=== PATIENT | female | born 1995 | race Caucasian/White ===

== ENCOUNTER 2016-08-23 19:28 | Emergency (ER) | payer MEDICAID ==
[~2016-08-23] VITALS: Ht 157.5 cm; Wt 86.2 kg
[~2016-08-23 19:28] MED LIST: PREN-385 PO
[2016-08-23 20:13] VITALS: BP 125/78
[2016-08-23 21:29] LABS: BASOPHILS # (AUTO) 0.2 K/uL (0.00-0.22); BASOPHILS % (AUTO) 1.8 % (0.0-2.0); EOSINOPHILS # (AUTO) 0.2 K/uL (0-0.4); EOSINOPHILS % (AUTO) 2.4 % (0.0-4.0); HEMATOCRIT 34.8 % (36-48); HEMOGLOBIN 11.7 g/dL (12.0-16.0); LYMPHOCYTES # (AUTO) 2.4 K/uL (2.5-16.5); MEAN CORPUSCULAR HEMOGLOBIN 26 pg (27-31); MEAN CORPUSCULAR HGB CONC 34 g/dL (33-37); MEAN CORPUSCULAR VOLUME 77 fL (80-94); MONOCYTES # (AUTO) 0.4 K/uL (0.8-1.0); MONOCYTES % (AUTO) 3.9 % (1.7-9.3); NEUTROPHILS # (AUTO) 6.1 K/uL (1.8-7.7); NEUTROPHILS % (AUTO) 65.9 % (42.2-75.2); PLATELET COUNT (AUTO) 217 K/uL (140-450); RED CELL DISTRIBUTION WIDTH 12.9 % (11.6-13.7); WHITE BLOOD COUNT (AUTO) 9.3 K/uL (4.5-11.0)
[2016-08-23 21:35] LABS: APPEARANCE,URINE SL CLOUDY (CLEAR); BILIRUBIN,URINE NEGATIVE (NEGATIVE); BLOOD, URINE TRACE-I (NEGATIVE); COLOR,URINE YELLOW (YELLOW); LEUKOCYTE ESTERASE ,URINE 2+ (NEGATIVE); NITRITE, URINE NEGATIVE (NEGATIVE); PROTEIN,URINE NEGATIVE (NEGATIVE); UGLUCOSE NEGATIVE (NEGATIVE); UROBILINOGEN,URINE 0.2 EU/dL (0.2 - 1)
--- NOTE | 2016-08-23 21:40 | NUR ---
20 Y/O F W/C/O VAGINAL PAIN THAT COMES AND GOES AND YELLOWISH DISCHARGE X 1WK. PT STATES SHE BUT DOES NOT KNOW HOW FAR ALONG SHE IS. NO MED HX PT DENIES N/V/D; SKIN IS PINK/WARM/DRY; AAOX4 WITH EVEN AND STEADY GAIT; LUNGS CLEAR BL; HR EVEN AND REGULAR; PT DENIES ANY FEVER, CP, SOB, OR COUGH AT THIS TIME; PATIENT STATES PAIN OF 0/10 AT THIS TIME; VSS; PATIENT POSITIONED FOR COMFORT; HOB ELEVATED; BEDRAILS UP X2; BED DOWN. ER MD MADE AWARE OF PT STATUS.
--- NOTE | 2016-08-23 21:40 | NUR ---
TO ER BED 6
[2016-08-23 21:46] LABS: ANION GAP 13.8 (8-16); CALCIUM 8.7 mg/dL (8.5-10.1); CARBON DIOXIDE 24.2 mmol/L (21-32); CREATININE 0.4 mg/dL (0.6-1.3)
[2016-08-23 21:54] LABS: BACTERIA,URINE 2+ /HPF (None Seen); RBC,URINE 0-5 /HPF (0-5); WBC,URINE 20-40 /HPF (0-5)
--- NOTE | 2016-08-23 22:17 | NUR ---
CALLED [facility] FOR MACROBID 100MG TAB.
--- NOTE | 2016-08-23 22:29 | NUR ---
CALLED [facility] AGAIN FOR ETA OF MACROBIB
[2016-08-23 22:55] VITALS: BP 110/60
--- NOTE | 2016-08-23 22:56 | NUR ---
Patient discharged with v/s stable. Written and verbal after care instructions given and explained. Patient alert, oriented and verbalized understanding of instructions. Ambulatory with steady gait. All questions addressed prior to discharge. ID band removed. Patient advised to follow up with PMD. Rx of MACROBIB 100MG BID given. Patient educated on indication of medication including possible reaction and side effects. Opportunity to ask questions provided and answered.
[2016-08-24] MEDS ORDERED: NITROFURANTOIN 100 MG CAP PO SCH (08:00)
== END 2016-08-23 22:55 | disposition home or self-care (01) ==
LOC: MED 19:28
DX: O23.42 Unspecified infection of urinary tract in pregnancy, second trimester (principal); R10.2 Pelvic and perineal pain; R03.0 Elevated blood-pressure reading, without diagnosis of hypertension; Z88.9 Allergy status to unspecified drugs, medicaments and biological substances; Z3A.14 14 weeks gestation of pregnancy
CPT/HCPCS: 36415; 76805; 80048; 81001; 81025; 84702; 85025; 86900; 86901; 87086; 99285

== ENCOUNTER 2016-08-31 13:31 | Emergency (ER) | payer MEDICAID ==
[~2016-08-31] VITALS: Ht 160 cm; Wt 86.4 kg
[2016-08-31 13:49] VITALS: BP 111/62
[2016-08-31 15:52] LABS: APPEARANCE,URINE HAZY (CLEAR); BILIRUBIN,URINE NEGATIVE (NEGATIVE); BLOOD, URINE NEGATIVE (NEGATIVE); COLOR,URINE YELLOW (YELLOW); LEUKOCYTE ESTERASE ,URINE 3+ (NEGATIVE); NITRITE, URINE NEGATIVE (NEGATIVE); PROTEIN,URINE TRACE (NEGATIVE); UGLUCOSE NEGATIVE (NEGATIVE)
[2016-08-31 15:58] LABS: BACTERIA,URINE 2+ /HPF (None Seen); MUCUS,URINE 2+ /LPF (None Seen); URINE AMORPHOUS PHOSPHATES 1+ /HPF (None Seen)
--- NOTE | 2016-08-31 16:00 | NUR ---
PT TO BED 8
--- NOTE | 2016-08-31 16:14 | NUR ---
Patient being evaluated by Tawana RISK CONTROL REPRESENTATIVE at bedside.
--- NOTE | 2016-08-31 16:14 | NUR ---
20/F c/o frequency, dribbling, urgency, dysuria x1 week. Pt was seen here and dx with UTI but was unable to fill her prescription d/t having no money. Pt states he is still having UTI symptoms and also c/o vaginal itching along with yellow discharge. Pt also reports being 14 weeks , G- 2 P-1. VSS.
--- NOTE | 2016-08-31 16:51 | NUR ---
Pelvic exam set up. Tawana at bedside for heart tones.
[2016-08-31 17:20] LABS: BASOPHILS # (AUTO) 0.3 K/uL (0.00-0.22); EOSINOPHILS # (AUTO) 0.2 K/uL (0-0.4); EOSINOPHILS % (AUTO) 2.3 % (0.0-4.0); HEMOGLOBIN 12.3 g/dL (12.0-16.0); LYMPHOCYTES % (AUTO) 19.8 % (20.5-51.1); MEAN CORPUSCULAR HEMOGLOBIN 26 pg (27-31); MEAN CORPUSCULAR HGB CONC 33 g/dL (33-37); MEAN CORPUSCULAR VOLUME 78 fL (80-94); MONOCYTES # (AUTO) 0.4 K/uL (0.8-1.0); MONOCYTES % (AUTO) 3.6 % (1.7-9.3); NEUTROPHILS # (AUTO) 7.2 K/uL (1.8-7.7); NEUTROPHILS % (AUTO) 71.3 % (42.2-75.2); PLATELET COUNT (AUTO) 245 K/uL (140-450); RED BLOOD CELL COUNT(AUTO) 4.74 MIL/uL (4.20-5.40); WHITE BLOOD COUNT (AUTO) 10.1 K/uL (4.5-11.0)
--- NOTE | 2016-08-31 17:35 | NUR ---
Pt recalls she was taking Azo over the counter. Tawana JONES made aware.
[2016-08-31 17:39] LABS: CARBON DIOXIDE 21.8 mmol/L (21-32); CREATININE 0.5 mg/dL (0.6-1.3); POTASSIUM 3.8 mmol/L (3.5-5.1)
--- NOTE | 2016-08-31 18:05 | NUR ---
Patient appears to be resting comfortably in bed. VSS.
[2016-08-31 18:52] VITALS: BP 118/71
--- NOTE | 2016-08-31 18:53 | NUR ---
Patient discharged with v/s stable. Written and verbal after care instructions given and explained. Patient verbalized understanding. Ambulatory with steady gait. All questions addressed prior to discharge. Advised to follow up with PMD.
[2016-09-04 06:13] LABS: CHLAMYDIA TRACHOMATIS AMP DNA Negative (Negative)
== END 2016-08-31 18:53 | disposition home or self-care (01) ==
LOC: MED 13:32
DX: O26.891 Other specified pregnancy related conditions, first trimester (principal); R39.15 Urgency of urination; R35.0 Frequency of micturition; N89.8 Other specified noninflammatory disorders of vagina; Z3A.14 14 weeks gestation of pregnancy
CPT/HCPCS: 36415; 80048; 81001; 81025; 84702; 85025; 86886; 86900; 86901; 87086; 87210; 87491; 99284; 99285

== ENCOUNTER 2016-10-06 17:30 | Observation (INO) | payer MEDICAID ==
[~2016-10-06] VITALS: Ht 157.5 cm; Wt 86.2 kg
[2016-10-06] MEDS ORDERED: ACETAMINOPHEN 325 MG TAB PO PRN (18:20)
[2016-10-06 18:30] LABS: APPEARANCE,URINE CLEAR (CLEAR); BILIRUBIN,URINE NEGATIVE (NEGATIVE); BLOOD, URINE NEGATIVE (NEGATIVE); COLOR,URINE YELLOW (YELLOW); LEUKOCYTE ESTERASE ,URINE NEGATIVE (NEGATIVE); NITRITE, URINE NEGATIVE (NEGATIVE); UGLUCOSE NEGATIVE (NEGATIVE)
[2016-10-06] MEDS ORDERED: ACETAMINOPHEN 325 MG TAB ONE (18:31)
[2016-10-06 18:32] VITALS: BP 129/74
[2016-10-06] MEDS ORDERED: CEPH250C16 PO (18:47)
[2016-10-06 19:04] LABS: BARBITURATE, URINE NEG. ng/ml (NEG <=200); BENZODIAZEPINE, URINE NEG. ng/mL (NEG <=200); CANNABINOID, URINE NEG. ng/mL (NEG <=50); COCAINE, URINE NEG. ng/mL (NEG <=300); OPIATE, URINE NEG. ng/mL (NEG <=2000); PHENCYCLIDINE SCREEN,URINE NEG. ng/mL (NEG <=25)
[2016-10-06] MEDS ORDERED: MORPHINE SULFATE 4 MG/ML SYR IM ONE (22:10)
[2016-10-06 22:14] VITALS: BP 102/66
== END 2016-10-06 22:45 | disposition home or self-care (01) ==
LOC: MLD 17:30
PROVIDERS: ADMIT Obstetrics & Gynecology; ATTEND Obstetrics & Gynecology
DX: O23.42 Unspecified infection of urinary tract in pregnancy, second trimester (principal); O26.893 Other specified pregnancy related conditions, third trimester; R10.30 Lower abdominal pain, unspecified; M54.5 Low back pain; Z3A.20 20 weeks gestation of pregnancy
CPT/HCPCS: 76770; 76805; 80305; 81003; G0378

== ENCOUNTER 2018-04-18 18:33 | Emergency (ER) | payer MEDICAID ==
[~2018-04-18] VITALS: Ht 157.5 cm; Wt 89.8 kg
[~2018-04-18 18:33] MED LIST changes: +CEPH250C16 PO; -PREN-385 PO
[2018-04-18 19:01] VITALS: BP 142/88
--- NOTE | 2018-04-18 19:06 | NUR ---
VSS; AMB TO LOBBY
--- NOTE | 2018-04-18 20:52 | NUR ---
PT AMBULATED TO BED #12, GAVE REPORT TO RN
[2018-04-18] MEDS ORDERED: LORazepam 2 MG/ML VIAL IM ONE (21:45)
--- NOTE | 2018-04-18 21:49 | NUR ---
PATIENT PRESENTS TO ED WITH C/O CHEST PAIN. PT STATES TIGHTNESS AND NUMBNESS THAT RADIATES TO L ARM. DENIES N/V/D; SKIN IS PINK/WARM/DRY; AAOX4 WITH EVEN AND STEADY GAIT; LUNGS CLEAR BL; HR EVEN AND REGULAR; PT DENIES ANY FEVER, CP, SOB, OR COUGH AT THIS TIME; PATIENT STATES PAIN OF 7/10 AT THIS TIME; VSS; PATIENT POSITIONED FOR COMFORT; HOB ELEVATED; BEDRAILS UP X2; BED DOWN. KELLY STRONG MADE AWARE OF PT STATUS. Addendum: 04/18/18 at 2222 by MED PATIENT PRESENTS TO ED WITH C/O CHEST PAIN. PT STATES TIGHTNESS AND NUMBNESS THAT RADIATES TO L ARM. DENIES N/V/D; SKIN IS PINK/WARM/DRY; AAOX4 WITH EVEN AND STEADY GAIT; LUNGS CLEAR BL; HR EVEN AND REGULAR; PT DENIES ANY FEVER, SOB, OR COUGH AT THIS TIME; PATIENT STATES PAIN OF 7/10 AT THIS TIME; VSS; PATIENT POSITIONED FOR COMFORT; HOB ELEVATED; BEDRAILS UP X2; BED DOWN. KELLY TSRONG MADE AWARE OF PT STATUS.
[2018-04-18 22:30] VITALS: BP 140/82
== END 2018-04-18 22:30 | disposition home or self-care (01) ==
LOC: MED 18:33
DX: F41.0 Panic disorder [episodic paroxysmal anxiety] (principal); R51 Headache; Z79.2 Long term (current) use of antibiotics; Z88.8 Allergy status to other drugs, medicaments and biological substances
CPT/HCPCS: 71045; 81002; 81025; 96372; 99283; J2060; 93005

== ENCOUNTER 2018-04-25 17:45 | Emergency (ER) | payer MEDICAID ==
[~2018-04-25] VITALS: Ht 157.5 cm; Wt 93.9 kg
[2018-04-25 17:58] VITALS: BP 117/81
--- NOTE | 2018-04-25 18:00 | NUR ---
PT AMBULATED TO BED 6
--- NOTE | 2018-04-25 18:05 | NUR ---
PT BIB SELF C/O 5/10 STERNAL CHEST PAIN X 3 WEEKS RADIATING TO L ARM. PT REPORTS STERNAL CHEST PAIN THAT RADIATES TO BACK AND LEFT ARM, ALSO RADIATES TO BACK OF HEAD. PAIN 5/10 AT THE MOMENT, PT STATES SHE HAS HX OF ANXIETY. PT DENIES N/V/D; SKIN IS INTACT, PINK/WARM/DRY; AAOX4, PERRL, WITH EVEN AND STEADY GAIT; LUNGS CLEAR BL, BREATHING UNLABORED; HR EVEN AND REGULAR, BL PERIPHERAL PULSES PRESENT; BS ACTIVE X4, NO TENDERNESS TO PALPATION, NO HEPATOSPLENOMEGALLY PALPATED, RESONANT TO PERCUSSION; VSS; PATIENT POSITIONED FOR COMFORT; HOB ELEVATED; BEDRAILS UP X2; BED DOWN, MONITOR ON, WILL CONTINUE TO MONITOR CLOSELY.
--- NOTE | 2018-04-25 19:09 | NUR ---
REPORT TO IMMANUEL SILVERMAN, TRANSFER OF CARE AT THIS TIME
--- NOTE | 2018-04-25 19:09 | NUR ---
ASSUMED CARE OF PT FROM HERRERA TURNER
--- NOTE | 2018-04-25 19:27 | NUR ---
X-Ray at bedside.
[2018-04-25 19:47] LABS: BASOPHILS % (AUTO) 0.3 % (0.0-2.0); EOSINOPHILS # (AUTO) 0.1 K/uL (0-0.4); EOSINOPHILS % (AUTO) 0.9 % (0.0-4.0); HEMATOCRIT 39.1 % (36-48); HEMOGLOBIN 13.1 g/dL (12.0-16.0); LYMPHOCYTES # (AUTO) 2.3 K/uL (2.5-16.5); LYMPHOCYTES % (AUTO) 20.8 % (20.5-51.1); MEAN CORPUSCULAR HEMOGLOBIN 27 pg (27-31); MEAN CORPUSCULAR HGB CONC 34 g/dL (33-37); MEAN CORPUSCULAR VOLUME 81.2 fL (80-94); MONOCYTES # (AUTO) 0.4 K/uL (0.8-1.0); MONOCYTES % (AUTO) 3.9 % (1.7-9.3); NEUTROPHILS # (AUTO) 8.2 K/uL (1.8-7.7); NEUTROPHILS % (AUTO) 74.1 % (42.2-75.2); PLATELET COUNT (AUTO) 265 K/uL (140-450); RED BLOOD CELL COUNT(AUTO) 4.81 MIL/uL (4.20-5.40); RED CELL DISTRIBUTION WIDTH 12.7 % (11.6-13.7)
[2018-04-25 20:21] LABS: ANION GAP 15.5 (8-16); CARBON DIOXIDE 25.1 mmol/L (21-32); CREATININE 0.7 mg/dL (0.6-1.3); POTASSIUM 3.6 mmol/L (3.5-5.1)
[2018-04-25 20:22] LABS: TOTAL BILIRUBIN 0.4 mg/dL (0.0-1.0)
[2018-04-25 20:38] LABS: CREATINE KINASE MB 0.4 ng/mL (0-3.6)
[2018-04-25 21:28] VITALS: BP 116/76
== END 2018-04-25 21:28 | disposition home or self-care (01) ==
LOC: MED 17:45
DX: R07.2 Precordial pain (principal); R20.0 Anesthesia of skin; R42 Dizziness and giddiness; F41.9 Anxiety disorder, unspecified; Z79.899 Other long term (current) drug therapy; Z88.8 Allergy status to other drugs, medicaments and biological substances
CPT/HCPCS: 36415; 71045; 80053; 81002; 81025; 82550; 82553; 83690; 84484; 85025; 85379; 93005; 99284; Q0092

== ENCOUNTER 2019-12-28 11:07 | Emergency (ER) | payer MEDICAID, OTHER ==
[~2019-12-28] VITALS: Ht 157.5 cm; Wt 93.0 kg
[2019-12-28 11:12] VITALS: BP 115/68
--- NOTE | 2019-12-28 11:19 | NUR ---
Pt ambulated to restroom to provide urine sample
--- NOTE | 2019-12-28 11:48 | NUR ---
DR. MEDEROS EVALUATING PT AT BEDSIDE
[2019-12-28] MEDS ORDERED: MECLIZINE 25 MG TAB PO ONE (11:50)
[2019-12-28] MEDS ORDERED: NACL 0.9% 1,000 ML IV SCH (11:50)
--- NOTE | 2019-12-28 11:58 | NUR ---
GENERAL CAR SUPERVISOR YARD AT BEDSIDE FOR BLOOD DRAW
--- NOTE | 2019-12-28 12:00 | NUR ---
24/F c/o dizziness x3 days with occasional blurry vision and tingling sensation to bilateral hands. Pt reports she is currently approx 5 weeks with LMP of 11/18/19. 0/10 pain. No LOC or n/v. VSS. Appears NAD. Allergies: reglan Med hx: none
[2019-12-28 12:08] LABS: BILIRUBIN,URINE NEGATIVE (NEGATIVE); BLOOD, URINE NEGATIVE (NEGATIVE); COLOR,URINE YELLOW (YELLOW); LEUKOCYTE ESTERASE ,URINE 2+ (NEGATIVE); NITRITE, URINE NEGATIVE (NEGATIVE); UGLUCOSE NEGATIVE (NEGATIVE)
[2019-12-28 12:09] LABS: BASOPHILS % (AUTO) 0.4 % (0.0-2.0); EOSINOPHILS # (AUTO) 0.3 K/uL (0-0.4); EOSINOPHILS % (AUTO) 4.1 % (0.0-4.0); HEMATOCRIT 37.1 % (36-48); HEMOGLOBIN 12.4 g/dL (12.0-16.0); LYMPHOCYTES # (AUTO) 2.1 K/uL (2.5-16.5); LYMPHOCYTES % (AUTO) 28.8 % (20.5-51.1); MEAN CORPUSCULAR HEMOGLOBIN 27 pg (27-31); MEAN CORPUSCULAR HGB CONC 33 g/dL (33-37); MEAN CORPUSCULAR VOLUME 81.7 fL (80-94); MONOCYTES # (AUTO) 0.3 K/uL (0.8-1.0); MONOCYTES % (AUTO) 4.4 % (1.7-9.3); NEUTROPHILS # (AUTO) 4.4 K/uL (1.8-7.7); NEUTROPHILS % (AUTO) 62.3 % (42.2-75.2); PLATELET COUNT (AUTO) 244 K/uL (140-450); RED BLOOD CELL COUNT(AUTO) 4.54 MIL/uL (4.20-5.40); RED CELL DISTRIBUTION WIDTH 13.4 % (11.6-13.7); WHITE BLOOD COUNT (AUTO) 7.1 K/uL (4.8-10.8)
--- NOTE | 2019-12-28 12:12 | NUR ---
EMT AT BEDSIDE FOR EKG
--- NOTE | 2019-12-28 12:13 | NUR ---
PER ERMD, OBTAIN ORTHOSTATIC VS AFTER 1 L NS FINISHES INFUSING
[2019-12-28 12:18] LABS: ANION GAP 12.5 (8-16); CARBON DIOXIDE 24.1 mmol/L (21-32); CREATININE 0.6 mg/dL (0.6-1.3); POTASSIUM 3.6 mmol/L (3.5-5.1)
[2019-12-28 12:26] LABS: APPEARANCE,URINE SLIGHTLY HAZY (CLEAR); RBC,URINE 0-5 /HPF (0-5)
--- NOTE | 2019-12-28 12:44 | NUR ---
1L NS STILL INFUSING
[2019-12-28 13:16] VITALS: BP 121/74
== END 2019-12-28 13:16 | disposition home or self-care (01) ==
LOC: MED 11:07
DX: O98.911 Unspecified maternal infectious and parasitic disease complicating pregnancy, first trimester (principal); R82.71 Bacteriuria; R42 Dizziness and giddiness; Z88.8 Allergy status to other drugs, medicaments and biological substances; Z3A.01 Less than 8 weeks gestation of pregnancy; Z79.899 Other long term (current) drug therapy
CPT/HCPCS: 36415; 80048; 81001; 81025; 83735; 85025; 87086; 93005; 96360; 99284; J7030; J8597